=== PATIENT | male | born 1970 | race American Indian/Alaskan Native ===

== ENCOUNTER 2016-11-26 08:10 | Emergency (ER) | payer OTHER ==
[2016-11-26 08:20] VITALS: BMI 32.4
[2016-11-26 08:23] VITALS: TEMP 98.7
[2016-11-26] MEDS ORDERED: Alum-Mag Hydrox-Simethicone Susp (30 mL) PO STA (08:37)
--- NOTE | 2016-11-26 08:47 | ED PDOC ---
Arrival/HPI - General Chief Complaint: Chest Pain Time Seen by Provider: 11/26/16 08:18 Historian: Patient - History of Present Illness Narrative History of Present Illness (Text): 11/26/16 08:30 A 46 year old male, whose past medical history includes hypertension, presents to the emergency department complaining of chest discomfort for three weeks. Patient reports went to PMD and blood pressure was 197/116, who then gave patient blood pressure medications, but notes still feels chest discomfort after taking them. Patient describes discomfort as a constant ache and pressure. Also reports no change with movement. Patient is unsure of any family history of cardiac diseases or blood clots. Patient notes a cough after taking Lisinopril and PMD changed medication to Hydrichlorothiazide. Patient denies fever, shortness of breath, abdominal pain, back pain, leg swelling or any other complaints at this time. Patient denies smoking or drug use. PMD: Dr. Estrada ([facility]) Time/Duration: Other (3 weeks) Symptom Onset: Sudden Symptom Course: Unchanged Quality: Aching, Pressure Activities at Onset: Rest Modifying Factors (Text): none Context: Home Past Medical History - Provider Review Nursing Documentation Reviewed: Yes - Cardiac Hx Cardiac Disorders: Yes Hx Hypertension: Yes - Pulmonary Hx Respiratory Disorders: No - Neurological Hx Neurological Disorder: No - HEENT Hx HEENT Disorder: No - Renal Hx Renal Disorder: No - Endocrine/Metabolic Hx Endocrine Disorders: No - Hematological/Oncological Hx Blood Disorders: No - Integumentary Hx Dermatological Disorder: No - Musculoskeletal/Rheumatological Hx Musculoskeletal Disorders: No - Gastrointestinal Hx Gastrointestinal Disorders: No - Genitourinary/Gynecological Hx Genitourinary Disorders: No - Psychiatric Hx Psychophysiologic Disorder: No Hx Substance Use: No Family/Social History - Physician Review Nursing Documentation Reviewed: Yes Family/Social History: No Known Family HX Smoking Status: Never Smoked Hx Alcohol Use: Yes ("weekends") Frequency of alcohol use: Socially Hx Substance Use: No Allergies/Home Meds Allergies/Adverse Reactions: Allergies VEENA Inhibitors Adverse Reaction (Verified 11/26/16 08:19) COUGH Home Medications: Home Meds Medication Instructions Recorded Confirmed amLODIPine [Norvasc] 10 mg PO DAILY 11/26/16 11/26/16 hydroCHLOROthiazide [Hydrodiuril] 25 mg PO DAILY 11/26/16 11/26/16 Review of Systems - Review of Systems Constitutional: absent: Fevers Eyes: absent: Vision Changes Respiratory: Cough (associated with onset of veena inhibitor). absent: SOB Cardiovascular: Chest Pain. absent: Palpitations, Edema, Calf Pain, GROSS, Orthopnea, Syncope Gastrointestinal: absent: Abdominal Pain, Constipation, Diarrhea, Nausea, Vomiting Genitourinary Male: absent: Dysuria Musculoskeletal: absent: Back Pain Neurological: absent: Headache Endocrine: absent: Diaphoresis Physical Exam Vital Signs Reviewed: Yes Vital Signs Temp Pulse Resp BP BP Pulse Ox 11/26/16 10:16 74 16 152/95 H 95 11/26/16 09:15 79 16 152/91 H 94 L 11/26/16 08:30 79 18 154/92 H 154/92 H 98 11/26/16 08:22 98.7 F 80 16 154/92 H 97 Temperature: Afebrile Blood Pressure: Hypertensive Pulse: Regular Respiratory Rate: Normal Appearance: Positive for: Well-Appearing, Non-Toxic, Comfortable Pain Distress: None Mental Status: Positive for: Alert and Oriented X 3 - Systems Exam Head: Present: Atraumatic, Normocephalic Pupils: Present: PERRL Extroacular Muscles: Present: EOMI Conjunctiva: Present: Normal Mouth: Present: Moist Mucous Membranes Neck: Present: Normal Range of Motion Respiratory/Chest: Present: Clear to Auscultation, Good Air Exchange. No: Respiratory Distress, Accessory Muscle Use Cardiovascular: Present: Regular Rate and Rhythm, Normal S1, S2. No: Murmurs Abdomen: Present: Normal Bowel Sounds. No: Tenderness, Distention, Peritoneal Signs Back: Present: Normal Inspection Upper Extremity: Present: Normal Inspection. No: Cyanosis, Edema Lower Extremity: Present: Normal Inspection. No: Edema Neurological: Present: GCS=15, CN II-XII Intact, Speech Normal Skin: Present: Warm, Dry, Normal Color. No: Rashes Psychiatric: Present: Alert, Oriented x 3, Normal Insight, Normal Concentration Medical Decision Making ED Course and Treatment: 11/26/16 08:30 Impression: A 46 year old male with chest discomfort x 3 weeks. Unlikely cardiac due to unchanged duration as well as no association with exertion or movement. Differential Diagnosis included but are not limited to: Acute coronary syndrome vs. pulmonary embolism vs. costochondritis vs. Gastroesophageal reflux disease Plan: -- EKG -- chest xray -- labs -- Aspirin, Pepcid, Maalox -- Reassess and disposition Progress Note: EKG EKG shows normal sinus rhythm at [address] changes. 11/26/16 09:20 Cxray negative 11/26/16 09:56 Labs reviewed and d-dimer and trop negative 11/26/16 10:01 Chest pain has been unchanged x 3 weeks. He has normal EKG. He has a heart score of 2 (45 and has htn and obesity). He reports that he can follow-up with his PMD on Saturday (<2 days). He was instructed on the importance of following up with cardiology and taking aspirin 81mg daily. He was instructed to increase potassium containing foods such as bananas. - Lab Interpretations Lab Results: 11/26/16 08:30 11/26/16 08:30 Lab Results 11/26/16 08:30: Sodium 138, Potassium 3.3 L, Chloride 97 L, Carbon Dioxide 30, Anion Gap 14, BUN 15, Creatinine 0.9, Est GFR ( Amer) > 60, Est GFR (Non- Af Amer) > 60, Random Glucose 101, Calcium 9.3, Total Bilirubin 1.0, AST 32, ALT 30, Alkaline Phosphatase 97, Lactate Dehydrogenase 441, Total Creatine Kinase 503 H, CK-MB (CK-2) 2.7, CK-MB (CK-2) % Cancelled, Troponin I 0.01, Total Protein 8.6 H, Albumin 4.6, Globulin 4.0, Albumin/Globulin Ratio 1.2 11/26/16 08:30: D-Dimer, Quantitative 0.33 11/26/16 08:30: WBC 6.8, RBC 4.84, Hgb 14.6, Hct 40.6 L, MCV 83.9, MCH 30.2, MCHC 36.0, RDW 13.7, Plt Count 314, MPV 10.3, Gran % 53.6, Lymph % (Auto) 35.6 H , [place] % (Auto) 5.8, Eos % (Auto) 4.6, Baso % (Auto) 0.4, Gran # 3.63, Lymph # 2.4, [place] # 0.4, Eos # 0.3, Baso # 0.03 I have reviewed the lab results: Yes - RAD Interpretation Radiology Orders: 11/26/16 08:36 CHEST PORTABLE [RAD] Stat - EKG Interpretation Interpreted by ED Physician: Yes Type: 12 lead EKG - Medication Orders Current Medication Orders: Discontinued Medications Al Hydrox/Mg Hydrox/Simethicone (Maalox Plus 30 Ml) 30 ml PO STAT STA Stop: 11/26/16 08:38 Last Admin: 11/26/16 08:44 Dose: 30 ml Aspirin (Aspirin Chewable) 324 mg PO STAT STA Stop: 11/26/16 08:37 Last Admin: 11/26/16 08:43 Dose: 324 mg Famotidine (Pepcid) 20 mg IVP STAT STA Stop: 11/26/16 08:38 Last Admin: 11/26/16 08:44 Dose: 20 mg - Colinibe Statement The provider has reviewed the documentation as recorded by the Johan Holley All medical record entries made by the Colinibamena were at my direction and personally dictated by me. I have reviewed the chart and agree that the record accurately reflects my personal performance of the history, physical exam, medical decision making, and the department course for this patient. I have also personally directed, reviewed, and agree with the discharge instructions and disposition. Disposition/Present on Arrival - Present on Arrival Any Indicators Present on Arrival: No History of DVT/PE: No History of Uncontrolled Diabetes: No Urinary Catheter: No History of Decub. Ulcer: No History Surgical Site Infection Following: None - Disposition Have Diagnosis and Disposition been Completed?: Yes Diagnosis: Chest pain Disposition: HOME/ ROUTINE Disposition Time: 10:03 Patient Plan: Discharge Condition: GOOD Discharge Instructions (ExitCare): Chest Pain (ED) Additional Instructions: Follow up with your PMD on saturday as previously scheduled or earlier if possible. Follow-up with cardiology for stress test.. Return to ED if condition worsens or if there is any change in your chest pain. Referrals: Faraz Valero MD [Staff Provider] - Follow up with primary Atul Bear MD [Staff Provider] - Follow up with primary Forms: WORK NOTE
[2016-11-26 08:57] LABS: ADD MANUAL DIFF? NO
[2016-11-26 09:01] LABS: BASO # 0.03 K/mm3 (0.0-2.0); BASO % 0.4 % (0.0-3.0); EOS # 0.3 (0.0-0.7); EOS % 4.6 % (1.5-5.0); GRAN # 3.63 (1.4-6.5); GRAN % 53.6 % (50.0-68.0); HEMATOCRIT 40.6 % (42.0-52.0); LYMPH # 2.4 (1.2-3.4); LYMPH % 35.6 % (22.0-35.0); MEAN CELL VOLUME 83.9 fL (80.0-105.0); MEAN CORPUSCULAR HEMOGLOBIN 30.2 pg (25.0-35.0); MEAN PLATELET VOLUME 10.3 fl (7.0-11.0); MONO # 0.4 (0.1-0.6); MONO % 5.8 % (1.0-6.0); PLATELET COUNT 314 10^3/uL (120.0-450.0); RED CELL DISTRIBUTION WIDTH 13.7 % (11.5-14.5); WHITE BLOOD COUNT 6.8 10^3/ul (4.5-11.0)
[2016-11-26 09:15] LABS: ALB/GLOB RATIO 1.2 (1.1-1.8); ALKALINE PHOSPHATASE 97 U/L (38-133); ALT/SGPT 30 U/L (7-56); AST/SGOT 32 U/L (15-59); BLOOD UREA NITROGEN 15 mg/dL (7-21); CALCIUM 9.3 mg/dL (8.4-10.5); CARBON DIOXIDE 30 mmol/L (21-33); CHLORIDE 97 mmol/L (98-107); GFR AFRICAN-AMERICAN > 60; GLUCOSE,RANDOM 101 mg/dL (70-110); POTASSIUM 3.3 mmol/L (3.6-5.0); SODIUM 138 mmol/L (132-148); TOTAL PROTEIN 8.6 g/dL (5.8-8.3)
--- NOTE | 2016-11-26 09:19 | RAD ---
HISTORY: chest pain COMPARISON: No prior. FINDINGS: LUNGS: No active pulmonary disease. PLEURA: No significant pleural effusion identified, no pneumothorax apparent. CARDIOVASCULAR: Normal. OSSEOUS STRUCTURES: No significant abnormalities. VISUALIZED UPPER ABDOMEN: Normal. OTHER FINDINGS: None. IMPRESSION: No active disease.
[2016-11-26 09:31] LABS: TROPONIN I 0.01 ng/mL
[2016-11-26 09:34] VITALS: RESP 16
[2016-11-26 10:18] VITALS: BP 152/95; PULSE 74; O2SAT 95
--- NOTE | 2016-11-26 20:26 | CARD ---
APPROVED REPORT EKG Measurement Heart [id number] <Conclusion> Normal sinus rhythm Normal ECG
== END 2016-11-26 10:22 | disposition home or self-care (01) ==
LOC: ED 08:10 → MERGE 08:10 → ED 10:22
DX: R07.9 Chest pain, unspecified (principal); I10 Essential (primary) hypertension

== ENCOUNTER 2018-09-11 03:40 | Emergency (ER) | payer OTHER, BC ==
[2018-09-11 03:40] VITALS: BMI 32.4
[2018-09-11 03:54] VITALS: RESP 18; TEMP 98.6
--- NOTE | 2018-09-11 04:22 | ED PDOC ---
Arrival/HPI - General Chief Complaint: Upper Extremity Problem/Injury Time Seen by Provider: 09/11/18 03:46 Historian: Patient - History of Present Illness Narrative History of Present Illness (Text): 09/11/18 04:15 48 year old male, whose past medical history includes hypertension, who presents to the Emergency department complaining of left shoulder pain and lower back pain. 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 Patient states he was seen initially by workman's compensation, who only applied an ice compress at the time. Patient states since then he has been experiencing pain to his left shoulder. Patient notes he was been to Urgent Care previously for the same complaint but has not had imaging performed. Patient also reports lower back pain and notes he is frequently heavy lifting at work. Patient denies any chest pain, shortness of breath, fevers, chills, nausea, vomiting, headaches, dizziness, paresthesias, or any other complaints. Time/Duration: > month Symptom Onset: Gradual Symptom Course: Unchanged Activities at Onset: Significant Context: Standing Past Medical History - Provider Review Nursing Documentation Reviewed: Yes - Cardiac Hx Cardiac Disorders: Yes Hx Hypertension: Yes - Pulmonary Hx Respiratory Disorders: No - Neurological Hx Neurological Disorder: No - HEENT Hx HEENT Disorder: No - Renal Hx Renal Disorder: No - Endocrine/Metabolic Hx Endocrine Disorders: No - Hematological/Oncological Hx Blood Disorders: No - Integumentary Hx Dermatological Disorder: No - Musculoskeletal/Rheumatological Hx Musculoskeletal Disorders: No - Gastrointestinal Hx Gastrointestinal Disorders: No - Genitourinary/Gynecological Hx Genitourinary Disorders: No - Psychiatric Hx Psychophysiologic Disorder: No Hx Substance Use: No Family/Social History - Physician Review Nursing Documentation Reviewed: Yes Family/Social History: Unknown Family HX Smoking Status: Never Smoked Hx Alcohol Use: Yes ("weekends") Frequency of alcohol use: Socially Hx Substance Use: No Allergies/Home Meds Allergies/Adverse Reactions: Allergies VEENA Inhibitors Adverse Reaction (Verified 11/26/16 08:19) COUGH Home Medications: Home Meds Medication Instructions Recorded Confirmed amLODIPine [Norvasc] 10 mg PO DAILY 11/26/16 11/26/16 hydroCHLOROthiazide [Hydrodiuril] 25 mg PO DAILY 11/26/16 11/26/16 Review of Systems - Physician Review All systems were reviewed & negative as marked: Yes - Review of Systems Constitutional: absent: Fevers Respiratory: absent: SOB Cardiovascular: absent: Chest Pain Gastrointestinal: absent: Nausea, Vomiting Musculoskeletal: Arthralgias (+left shoulder pain), Back Pain (lower back pain) Neurological: absent: Headache, Dizziness Endocrine: absent: Diaphoresis Physical Exam Vital Signs Reviewed: Yes Vital Signs Temp Pulse Resp BP Pulse Ox 09/11/18 03:51 98.6 F 93 H 18 169/99 H 96 Temperature: Afebrile Blood Pressure: Hypertensive Pulse: Regular Respiratory Rate: Normal Appearance: Positive for: Well-Appearing, Non-Toxic, Comfortable Pain Distress: None Mental Status: Positive for: Alert and Oriented X 3 - Systems Exam Head: Present: Atraumatic, Normocephalic Pupils: Present: PERRL Extroacular Muscles: Present: EOMI Conjunctiva: Present: Normal Mouth: Present: Moist Mucous Membranes Neck: Present: Normal Range of Motion. No: Meningeal Signs, MIDLINE TENDERNESS, Paraspinal Tenderness Respiratory/Chest: Present: Clear to Auscultation, Good Air Exchange. No: Respiratory Distress, Accessory Muscle Use Cardiovascular: Present: Regular Rate and Rhythm, Normal S1, S2. No: Murmurs Abdomen: No: Tenderness, Distention, Peritoneal Signs Back: Present: Normal Inspection. No: CVA Tenderness, Midline Tenderness, Paraspinal Tenderness Upper Extremity: Present: Normal ROM, NORMAL PULSES, Tenderness (Tenderness over left shoulder), Neurovascularly Intact, Capillary Refill < 2s. No: Cyanosis, Edema, Swelling, Erythema, Temperature Abnormalties, Deformity Lower Extremity: Present: Normal Inspection. No: Edema Neurological: Present: GCS=15, CN II-XII Intact, Speech Normal Skin: Present: Warm, Dry, Normal Color. No: Rashes Psychiatric: Present: Alert, Oriented x 3, Normal Insight, Normal Concentration Medical Decision Making ED Course and Treatment: 09/11/18 04:25 Impression: 48 year old male presents to the Emergency department complaining of left shoulder pain and lower back pain. Plan: -- X-ray Left Shoulder -- X-ray Lumbar Spine -- Toradol -- Flexeril -- Reassess and disposition Progress Notes: 09/11/18 05:33 Reviewed radiology, XR Left Shoulder shows no acute processes/no fractures. XR Lumbar Spine shows no acute processes/no fractures. - RAD Interpretation Chief Orthoptist: ED Physician - Scribe Statement The provider has reviewed the documentation as recorded by the Scribe German Romero, training with Francy Kelley. Provider Scribe Attestation: All medical record entries made by the Scribe were at my direction and personally dictated by me. I have reviewed the chart and agree that the record accurately reflects my personal performance of the history, physical exam, medical decision making, and the department course for this patient. I have also personally directed, reviewed, and agree with the discharge instructions and disposition. Disposition/Present on Arrival - Present on Arrival Any Indicators Present on Arrival: No History of DVT/PE: No History of Uncontrolled Diabetes: No Urinary Catheter: No History of Decub. Ulcer: No History Surgical Site Infection Following: None - Disposition Have Diagnosis and Disposition been Completed?: Yes Diagnosis: Shoulder sprain, Low back strain, Muscle spasm Disposition: HOME/ ROUTINE Disposition Time: 05:36 Patient Plan: Discharge Patient Problems: Current Active Problems Problem Status Onset Low back strain Acute Muscle spasm Acute Shoulder sprain Acute Condition: GOOD Discharge Instructions (ExitCare): Low Back Pain (DC), Muscle Strain (DC), Muscle Spasms (DC), Lumbar Muscle Strain (DC), Shoulder Sprain (DC) Additional Instructions: Take meds as prescribed/follow up with the orthopedist this week Prescriptions: Cyclobenzaprine [Cyclobenzaprine HCl] 10 mg PO TID PRN #15 tab PRN Reason: Muscle Spasm Naproxen [Naprosyn] 500 mg PO BID PRN #14 tab PRN Reason: Pain Referrals: Blanca Murphy MD [Staff Provider] - Follow up with primary Forms: [employer] (Norwegian), WORK NOTE
[2018-09-11 05:49] VITALS: BP 155/89; PULSE 88; O2SAT 100
--- NOTE | 2018-09-11 07:51 | RAD ---
Date of service: 09/11/2018 PROCEDURE: Radiographs of the Left Shoulder HISTORY: pain/injury 2 months prior COMPARISON: No prior. FINDINGS: BONES: No acute fracture or destructive bony lesion identified. JOINTS: Normal. Glenohumeral and acromioclavicular joints preserved. No osteoarthritis. SOFT TISSUES: Normal. OTHER FINDINGS: None. IMPRESSION: Unremarkable radiographs of the left shoulder.
--- NOTE | 2018-09-11 07:54 | RAD ---
Date of service: 09/11/2018 PROCEDURE: Radiographs of the Lumbar Spine. HISTORY: pain COMPARISON: No prior. FINDINGS: BONES: Straightened lumbar curvature. No lumbar spinal fracture identified although anterior wedging of T12 is minimal and could reflect a fracture of indeterminate age. No spondylolisthesis identified. Limited multilevel thoracolumbar spondylosis appreciated. No destructive bony lesions identified. No spondylolysis identified with oblique imaging demonstrating only mild multilevel facet arthropathy diffusely. DISC SPACES: Unremarkable. OTHER FINDINGS: None. IMPRESSION: Limited multilevel degenerative spondylosis and facet arthropathy throughout the lumbar spine without spondylolysis, spondylolisthesis or fracture evident. Incidental potential T12 minimal anterior wedge compression fracture though of indeterminate age if present. Straightened lumbar curvature.
== END 2018-09-11 05:48 | disposition home or self-care (01) ==
LOC: ED 03:40
DX: S39.012A Strain of muscle, fascia and tendon of lower back, initial encounter (principal); S43.402A Unspecified sprain of left shoulder joint, initial encounter; W20.8XXA Other cause of strike by thrown, projected or falling object, initial encounter; Y99.0 Civilian activity done for income or pay; I10 Essential (primary) hypertension; M62.838 Other muscle spasm
CPT/HCPCS: 72110; 73030; 96372; 99284; J1885